=== PATIENT | male | born 1970 | race Caucasian/White ===

== ENCOUNTER 2017-09-17 03:53 | Inpatient (IN) | payer OTHER ==
[~2017-09-17] VITALS: Ht 180.3 cm; Wt 77.6 kg
[2017-09-17 04:00] VITALS: BP 145/95
--- NOTE | 2017-09-17 04:04 | NUR ---
PT AMBULATED TO BED 2
--- NOTE | 2017-09-17 04:05 | NUR ---
PATIENT PRESENTS TO ED WITH C/O AB PAIN +N/V/D X 1 WEEK; SKIN IS PINK/WARM/DRY; AAOX4 WITH EVEN AND STEADY GAIT; LUNGS CLEAR BL; HR EVEN AND REGULAR; PT DENIES CP, SOB, OR COUGH AT THIS TIME; PATIENT STATES PAIN OF 10/10 AT THIS TIME; VSS; PATIENT POSITIONED FOR COMFORT; HOB ELEVATED; BEDRAILS UP X2; BED DOWN. ER MD MADE AWARE OF PT STATUS.
[2017-09-17] MEDS ORDERED: NACL 0.9% 1,000 ML IV SCH ×2 (04:36→06:46)
[2017-09-17] MEDS ORDERED: KETOROLAC 30 MG/ML VIAL IVP ONE ×2 (04:40→09:45)
[2017-09-17 04:49] LABS: BILIRUBIN,URINE NEGATIVE (NEGATIVE); BLOOD, URINE 2+ (NEGATIVE); COLOR,URINE YELLOW (YELLOW); LEUKOCYTE ESTERASE ,URINE NEGATIVE (NEGATIVE); NITRITE, URINE NEGATIVE (NEGATIVE); PH,URINE 7.5 (5.0-9.0); UGLUCOSE NEGATIVE (NEGATIVE)
[2017-09-17 04:49] LABS: HEMATOCRIT 42.6 % (36-52); HEMOGLOBIN 14.9 g/dL (12.0-18.0); MEAN CORPUSCULAR HEMOGLOBIN 29 pg (27-31); MEAN CORPUSCULAR HGB CONC 35 g/dL (33-37); MEAN CORPUSCULAR VOLUME 81.6 fL (80-94); PLATELET COUNT (AUTO) 229 K/uL (140-450); RED BLOOD CELL COUNT(AUTO) 5.22 MIL/uL (4.20-6.10); RED CELL DISTRIBUTION WIDTH 13.3 % (11.6-13.7); WHITE BLOOD COUNT (AUTO) 13.4 K/uL (4.8-10.8)
[2017-09-17 05:06] LABS: CARBON DIOXIDE 25.6 mmol/L (21-32); CREATININE 1.2 mg/dL (0.7-1.3); POTASSIUM 3.6 mmol/L (3.5-5.1)
[2017-09-17 05:12] LABS: ALBUMIN 3.4 g/dL (3.4-5.0); TOTAL BILIRUBIN 0.8 mg/dL (0.0-1.0)
[2017-09-17 05:20] LABS: LYMPHOCYTES % (MANUAL) 3 % (20-46); MONOCYTES % (MANUAL) 5 % (5-12)
[2017-09-17 05:27] LABS: APPEARANCE,URINE SLIGHTLY HAZY (CLEAR)
[2017-09-17 05:28] LABS: RBC,URINE 3-10 (FEW) /HPF (0-5); WBC,URINE 0-5 (RARE) /HPF (0-5)
[2017-09-17] MEDS ORDERED: MORPHINE SULFATE 4 MG/ML SYR IVP ONE (05:30)
[2017-09-17] MEDS ORDERED: PIPERACILLIN/TAZOBACTAM 3.375 GM in DEXTROSE 5% 50 ML IV ONE (05:35)
[2017-09-17] MEDS ORDERED: PIPERACILLIN/TAZOBACTAM 3.375 GM VIAL IV ONE (05:44)
[2017-09-17] MEDS ORDERED: ONDANSETRON 4 MG/2 ML VIAL IM/IVP PRN (06:50)
--- NOTE | 2017-09-17 07:10 | NUR ---
ER NURSES BROUGHT PT ON A WHEELCHAIR. PT IS AWAKE AND ORIENTED. INTRODUCED MYSELF AND UPDATED THE BOARD. PT IS ACCOMPANIED BY SPOUSE. AMBULATED FROM WHEELCHAIR TO BED. STEADY GAIT. PT V/S WITHIN NORMAL LIMITS. DENIES PAIN, JUST DISCOMFORT. PT HAS NO OTHER MEDICAL HX, SKIN IS INTACT. IV ON L AC 20G SL. MRSA SCREENING DONE. WILL CONTINUE TO MONITOR PT.
[2017-09-17 07:53] LABS: CHOL/HDL RATIO 3.2 (1-4.5); MAGNESIUM 1.8 mg/dL (1.8-2.4); PHOSPHORUS 2.5 mg/dL (2.5-4.9)
--- NOTE | 2017-09-17 07:55 | NUR ---
ADMINISTERED FLUIDS ORDERED. PT IS RESTING COMFORTABLY. NO SIGNS OF DISTRESS. WILL CONTINUE TO MONITOR PT.
[2017-09-17 08:00] LABS: BARBITURATE, URINE NEG. ng/ml (NEG <=200); BENZODIAZEPINE, URINE NEG. ng/mL (NEG <=200); CANNABINOID, URINE POS. ng/mL (NEG <=50); COCAINE, URINE NEG. ng/mL (NEG <=300); OPIATE, URINE NEG. ng/mL (NEG <=2000); PHENCYCLIDINE SCREEN,URINE NEG. ng/mL (NEG <=25)
--- NOTE | 2017-09-17 08:42 | NUR ---
ADMINISTERED MORNING MED AND ADJUSTED FLUIDS PER MD ORDER. SURGERY CALLED AND WILL BE PICKING UP THE PT AROUND 0930. PT RESTING COMFORTABLE IN BED WAITING. NO SIGNS OF DISTRESS. WILL CONTINUE TO MONITOR.
[2017-09-17] MEDS: LACTOBACILLUS RHAMNOSUS GG 1 EACH CAP PO SCH (08:50)
--- NOTE | 2017-09-17 08:51 | NUR ---
PATIENT HAS BEEN SCREENED AND CATEGORIZED MODERATE NUTRITION RISK. PATIENT WILL BE SEEN WITHIN 3-5 DAYS OF ADMISSION. 09/19/17 09/21/[address] Addendum: 09/17/17 at [address] PATIENT HAS BEEN RE-SCREENED AND RE-CATEGORIZED HIGH NUTRITIONAL RISK DUE TO SEPSIS. PATIENT WILL BE SEEN 09/18/[address]
[2017-09-17] MEDS ORDERED: LACTOBACILLUS RHAMNOSUS GG 1 EACH CAP PO SCH (09:00)
--- NOTE | 2017-09-17 09:10 | NUR ---
TWO O/R NURSES HERE TO TAKE PT TO SURGERY.
[2017-09-17] MEDS ORDERED: BUPIVACAINE MPF 0.25% 10 ML VIAL INJ ONE (09:17)
[2017-09-17] MEDS ORDERED: MIDAZOLAM 2 MG/2 ML VIAL ONE (09:36)
[2017-09-17] MEDS ORDERED: fentaNYL 0.05 MG/ML VIAL ONE (09:36)
[2017-09-17] MEDS ORDERED: MEPERIDINE 50 MG/ML SYR ONE (09:36)
[2017-09-17] MEDS ORDERED: SUCCINYLCHOLINE CHLORIDE 200 MG/10 ML VIAL IV ONE (09:45)
[2017-09-17] MEDS ORDERED: ONDANSETRON 4 MG/2 ML VIAL IVP ONE (09:45)
[2017-09-17] MEDS ORDERED: DEXAMETHASONE 4 MG/ML VIAL IVP ONE (09:45)
[2017-09-17] MEDS ORDERED: SEVOFLURANE 250 ML BTL INH ONE (09:45)
[2017-09-17] MEDS ORDERED: PROPOFOL 200 MG/20 ML VIAL IV ONE (09:45)
[2017-09-17] MEDS ORDERED: ROCURONIUM 50 MG/5 ML VIAL IV ONE (09:45)
[2017-09-17 09:56] VITALS: BP 126/77
[2017-09-17] MEDS: DEXT 5% / NACL 0.45% 1,000 ML IV SCH ×2 (11:35→20:59)
[2017-09-17 12:25] VITALS: BP 139/80
--- NOTE | 2017-09-17 12:25 | NUR ---
PT IS BACK FROM SURGERY. VS WITHIN NORMAL LIMITS. IS AT BEDSIDE.
--- NOTE | 2017-09-17 12:49 | NUR ---
Clinical review faxed to [facility] at [phone]
[2017-09-17 12:50] VITALS: BP 141/87
[2017-09-17 12:57] LABS: BASOPHILS % (AUTO) 0.2 % (0.0-2.0); EOSINOPHILS % (AUTO) 0.1 % (0.0-4.0); HEMATOCRIT 39.3 % (36-52); HEMOGLOBIN 13.7 g/dL (12.0-18.0); LYMPHOCYTES # (AUTO) 0.3 K/uL (2.0-11.5); LYMPHOCYTES % (AUTO) 4.1 % (20.5-51.1); MEAN CORPUSCULAR HEMOGLOBIN 29 pg (27-31); MEAN CORPUSCULAR HGB CONC 35 g/dL (33-37); MEAN CORPUSCULAR VOLUME 82.5 fL (80-94); MONOCYTES # (AUTO) 0.4 K/uL (0.8-1.0); MONOCYTES % (AUTO) 5.2 % (1.7-9.3); NEUTROPHILS # (AUTO) 6.8 K/uL (1.8-7.7); NEUTROPHILS % (AUTO) 90.4 % (42.2-75.2); PLATELET COUNT (AUTO) 207 K/uL (140-450); RED BLOOD CELL COUNT(AUTO) 4.76 MIL/uL (4.20-6.10); RED CELL DISTRIBUTION WIDTH 13.1 % (11.6-13.7); WHITE BLOOD COUNT (AUTO) 7.5 K/uL (4.8-10.8)
[2017-09-17] MEDS: PIPER/TAZO 3.375GM/D5W PREMIX 50 ML IV SCH ×2 (13:18→20:54)
[2017-09-17 13:22] LABS: ANION GAP 12.5 (8-16); CARBON DIOXIDE 27.8 mmol/L (21-32); CREATININE 1.2 mg/dL (0.7-1.3); POTASSIUM 4.3 mmol/L (3.5-5.1)
--- NOTE | 2017-09-17 14:17 | NUR ---
PT AT BEDSIDE ASSISTING PT WITH I/S. PT REQUESTING PAIN MEDICINE D/T PAIN IN THE ABDOMEN. WILL ADMINISTER AND CONTINUE TO MONITOR.
[2017-09-17] MEDS: MORPHINE SULFATE 2 MG/ML SYR IVP PRN ×3 (14:18→20:48)
[2017-09-17 16:00] VITALS: BP_SYST 133; BP_SYST 141; BP_DIAS 87; BP_DIAS 89
--- NOTE | 2017-09-17 16:00 | NUR ---
PT VS STABLE. DRESSING ARE INTACT AND DRY. ASSISTED PT TP BATHROOM. EMPTIED DRAIN, 150ML OUT.
--- NOTE | 2017-09-17 18:00 | NUR ---
PT EATING DINER. IS AT BEDSIDE. EMPTIED DIEGO DRAIN, 55ML. NO S/SX OF DISTRESS. WILL CONTINUE TO MONITOR.
--- NOTE | 2017-09-17 19:25 | NUR ---
ENDORSED PT TO PHP LAMP DEVELOPER NURSE FOR CONTINUITY OF CARE. PT IN STABLE CONDITION.
--- NOTE | 2017-09-17 19:26 | NUR ---
RECEIVED PT AWAKE, COMPLAINING OF PAIN STATED SHORT RELIEF FROM MORPHINE IVP GIVEN EARLIER, WILL MEDICATE WITH NORCO, ABDOMINAL DRESSING DRY AND INTACT, DIEGO DRAIN TO BULB SUCTION DRAINING MODERATE SANGUINEOUS FLUID, TOLERATING DIET WELL, BURPING BUT NOT PASSING GAS YET, IVF INFUSING WELL, USING IS, PLAN OF CARE DISCUSS AND QUESTIONS ANSWERED, AT BEDSIDE, CALL LIGHT WITHIN REACH.
--- NOTE | 2017-09-17 19:40 | NUR ---
PT CHANGE HIS MIND, WILL WAIT FOR NEXT DUE MORPHINE IVP INSTEAD OF TAKING NORCO, ALL NEEDS ATTENDED.
--- NOTE | 2017-09-17 21:00 | NUR ---
PT AMBULATED TO BR AND VOIDED FREELY, ASSISTED BACK TO BED, MEDICATED PRN FOR PAIN WITH MORPHINE IVP, DUE IV ANTIBIOTIC ADMINISTERED, DIEGO WITH 50ML SANGUINEOUS DRAINAGE NOTED, CONTINUE ON BULB SUCTION, MONITORED CLOSELY.
[2017-09-17] MEDS: HYDROcodone/APAP 7.5/325 MG 1 TAB PO PRN (22:04)
--- NOTE | 2017-09-17 22:50 | NUR ---
DR BOWEN CALLED, UPDATED ON PT'S CONDITION, DIEGO DRAINAGE AND LAB RESULTS, NO NEW ORDERS AT THIS TIME.
[2017-09-18] VITALS: BP 136/86
--- NOTE | 2017-09-18 00:07 | NUR ---
PT SLEEPING, AROUSABLE TO NAME, DENIES ANY PAIN, IVF INFUSING WELL, CONTINUE TO MONITOR CLOSELY.
--- NOTE | 2017-09-18 02:10 | NUR ---
PT SLEEPING, EASILY AROUSABLE, DENIES PAIN, DIEGO DRAIN EMPTIED WITH 30ML SANGUINEOUS DRAINAGE, PT VOIDING FREELY USING URINAL, MONITORED CLOSELY.
[2017-09-18] MEDS: DEXT 5% / NACL 0.45% 1,000 ML IV SCH ×4 (03:35→19:35)
[2017-09-18] MEDS: PIPER/TAZO 3.375GM/D5W PREMIX 50 ML IV SCH ×3 (04:48→20:27)
--- NOTE | 2017-09-18 04:58 | NUR ---
PT AWAKE, DENIES PAIN AT THIS TIME, DUE IV ZOSYN ADMINISTERED, DIEGO WITH 20ML SANGUINOUS DRAINAGE, ABDOMINAL DRESSING WITH SEROSANGUINEOUS DRAINAGE NOTED, DRESSING REINFORCED WITH ABD PAD, PT IN NO DISTRESS, MONITORED CLOSELY.
[2017-09-18 06:11] LABS: BASOPHILS % (AUTO) 0.2 % (0.0-2.0); HEMATOCRIT 34.6 % (36-52); HEMOGLOBIN 12.3 g/dL (12.0-18.0); LYMPHOCYTES # (AUTO) 0.5 K/uL (2.0-11.5); LYMPHOCYTES % (AUTO) 5.5 % (20.5-51.1); MEAN CORPUSCULAR HEMOGLOBIN 29 pg (27-31); MEAN CORPUSCULAR HGB CONC 36 g/dL (33-37); MEAN CORPUSCULAR VOLUME 81.8 fL (80-94); MONOCYTES # (AUTO) 0.9 K/uL (0.8-1.0); NEUTROPHILS # (AUTO) 8.4 K/uL (1.8-7.7); NEUTROPHILS % (AUTO) 85.3 % (42.2-75.2); PLATELET COUNT (AUTO) 217 K/uL (140-450); RED BLOOD CELL COUNT(AUTO) 4.23 MIL/uL (4.20-6.10); RED CELL DISTRIBUTION WIDTH 13.1 % (11.6-13.7); WHITE BLOOD COUNT (AUTO) 9.8 K/uL (4.8-10.8)
--- NOTE | 2017-09-18 06:22 | NUR ---
PT SEEN AMBULATING AROUND THE ROOM, TOLERATING WELL, TOLERABLE PAIN AT THIS TIME, IVF INFUSING WELL, MONITORED CLOSELY.
[2017-09-18 06:34] LABS: ANION GAP 16.5 (8-16); CARBON DIOXIDE 26.6 mmol/L (21-32); POTASSIUM 4.1 mmol/L (3.5-5.1)
--- NOTE | 2017-09-18 07:20 | NUR ---
PT AWAKE SITTING ON THE CHAIR, NO DISTRESS NOTED, REPORT GIVEN TO JUAN FARLEY FOR CONTINUITY OF CARE.
--- NOTE | 2017-09-18 07:22 | NUR ---
RECEIVED REPORT FROM SOCIAL WORK ADMINISTRATOR NURSE, PT IS SITTING ON CHAIR AT BEDSIDE, WATCHING TV, PT IS AAOX4, AMBULATORY, PT HAS IV ON HIS LEFT AC, PATENT, INTACT, FLUSHING WELL, PT HAS ABDOMINAL DRESSING, PER SOCIAL WORK ADMINISTRATOR HE DID RE ENFORCE DRESSING ONE TIME DURING HIS SHIFT FOR MINIMAL SEROSANGUINEOUS STAIN, DRESSING IS DRY AND INTACT AT THIS TIME. PT HAS DIEGO DRAIN IN PLACE, 50ML OF SANGUINEOUS OUTPUT, NO S/S OF RESPIRATORY DISTRESS OR DISCOMFORT NOTED, DISCUSSED PLAN OF CARE WITH PT, PT VERBALIZED UNDERSTANDING, CALL LIGHT IS WITHIN REACH, WILL CONTINUE TO MONITOR.
[2017-09-18] MEDS: MORPHINE SULFATE 2 MG/ML SYR IVP PRN (07:46)
[2017-09-18 08:00] VITALS: BP 138/86
[2017-09-18 08:24] LABS: T4 (THYROXINE) 10.8 ug/dL (4.5-12.0)
--- NOTE | 2017-09-18 09:45 | NUR ---
PATIENT SITTING ON CHAIR AT BEDSIDE, WATCHING TV, CALL LIGHT IS WITHIN REACH.
[2017-09-18] MEDS: HYDROcodone/APAP 7.5/325 MG 1 TAB PO PRN ×3 (10:06→19:47)
[2017-09-18] MEDS: LACTOBACILLUS RHAMNOSUS GG 1 EACH CAP PO SCH (10:06)
--- NOTE | 2017-09-18 12:00 | NUR ---
PATIENT RESTING IN BED, NO S/S OF RESPIRATORY DISTRESS NOTED, CALL LIGHT IS WITHIN REACH.
--- NOTE | 2017-09-18 12:54 | NUR ---
FAXED CONCURRENT REVIEW TO [facility] [phone] PHONE [phone]
[2017-09-18 16:00] VITALS: BP 136/86
--- NOTE | 2017-09-18 16:43 | NUR ---
09/18/17 RD INITIAL ASSESSMENT COMPLETED PLEASE REFER TO NUTRITION ASSESSMENT UNDER CARE ACTIVITY FOR ESTIMATED NUTRITIONAL NEEDS. 1. CONTINUE CLEAR LIQUID DIET TOLERATED 2. RD TO FOLLOW-UP 3-5 DAYS, MODERATE RISK CHEPE BLAKELY RD
--- NOTE | 2017-09-18 16:45 | NUR ---
DR. BOWEN AT PATIENT BEDSIDE REMOVED DRESSING. PT TOLERATED WELL. PER DR. BOWEN REMOVE STITCHES FROM LEFT INCISION TOMORROW 09/19/17, BEFORE DISCHARGE.
--- NOTE | 2017-09-18 19:25 | NUR ---
ENDORSED PT TO [employer] FORMER ARBOR END NURSE FOR CONTINUITY OF CARE. PT STABLE AT THIS TIME.
--- NOTE | 2017-09-18 19:30 | NUR ---
RECEIVED PT SITTING ON SIDE OF BED, PER PT JUST FINISHED WALKING FROM THE BATHROOM, VOIDED FREELY, 6/10 PAIN LEVEL AT THIS TIME, WILL MEDICATE PRN, DIEGO DRESSING INTACT WITH LIGHT SEROSANGUINEOUS DRAINAGE, WILL CHANGE DRESSING PRN, DIEGO DRAIN ON BULB SUCTION AND EMPTIED 35 ML LIGHT PINKISH SEROSANGUINEOUS DRAINAGE, IVF INFUSING WELL, PER PT HE IS PASSING GAS, TOLERATING CLEAR LIQUID DIET, SAFETY MEASURES IN PLACE, AT BEDSIDE, CALL LIGHT WITHIN REACH.
--- NOTE | 2017-09-18 21:11 | NUR ---
DIEGO DRESSING WET WITH MODERATE YELLOW PINK SEROUS DRAINAGE NOTED, DRESSING CHANGE DONE, DIEGO DRAIN WITH 80ML LIGHT PINK SEROUS DRAINAGE NOTED, RESUME BULB SUCTION, NEW IV LINE STARTED ON LFT HAND, IV ANTIBIOTIC INFUSING WELL, ALL NEEDS ATTENDED.
[2017-09-19] VITALS: BP 126/79
--- NOTE | 2017-09-19 | NUR ---
PT SLEEPING, EASILY AROUSABLE, VITAL SIGNS STABLE, AFEBRILE, DENIES ANY PAIN, IVF INFUSING WELL, CONTINUE TO MONITOR CLOSELY.
[2017-09-19] MEDS: DEXT 5% / NACL 0.45% 1,000 ML IV SCH ×2 (01:40→11:35)
--- NOTE | 2017-09-19 01:40 | NUR ---
PT REQUESTING SCD TO BE OFF AT THIS TIME SO HE CAN SLEEP, DIEGO DRAIN EMPTIED WITH 30ML LIGHT YELLOW SEROUS DRAINAGE, DENIES ANY PAIN, NEW IV BAG STARTED, MONITORED CLOSELY.
[2017-09-19] MEDS: HYDROcodone/APAP 7.5/325 MG 1 TAB PO PRN ×4 (03:05→18:45)
--- NOTE | 2017-09-19 03:15 | NUR ---
DIEGO DRESSING SOAKED WITH LIGHT YELLOW SEROUS DRAINAGE, LIGHT YELLOWISH SEROUS DRAINAGE COMING OUT FROM DIEGO SITE INCISION, SUTURE STILL INTACT, DIEGO BULB SUCTION WITH LIGHT YELLOW SEROUS DRAINAGE NOTED, DRESSING CHANGE DONE, MEDICATED PRN FOR PAIN WITH NORCO PO, DR TRUJILLO MADE AWARE OF LEAKING ON THE DIEGO SITE, HE WILL CHECK THE PT, MONITORED CLOSELY.
[2017-09-19] MEDS: PIPER/TAZO 3.375GM/D5W PREMIX 50 ML IV SCH ×2 (04:33→13:07)
--- NOTE | 2017-09-19 06:24 | NUR ---
DIEGO DRESSING SOAKED WITH SEROUS DRAINAGE, DRESSING CHANGE DONE, EMPTIED DIEGO DRAIN WITH 20ML LIGHT YELLOW PINK SEROUS DRAINAGE, MILKED THE DIEGO TUBING TO REMOVE POSSIBLE OBSTRUCTION, WILL MONITOR DIEGO DRAINAGE AMOUNT, PT HAS TOLERABLE PAIN AT THIS TIME, DR ROSENBERG MADE AWARE OF DIEGO DRAIN SITE LEAKAGE, MONITORED CLOSELY.
--- NOTE | 2017-09-19 07:20 | NUR ---
PT AWAKE, NO SIGNS OF DISTRESS, REPORT GIVEN TO JUAN SPEARS FOR CONTINUITY OF CARE.
--- NOTE | 2017-09-19 07:22 | NUR ---
RECEIVED REPORT FROM QUANTITATIVE ANALYST RN. PATIENT IS AAO X4. STATES THAT PAIN IS TOLERABLE AT THIS TIME. LUNGS CTA IN ALL [place]. HEART RHYTHM REGULAR, S1 AND S2 NOTED. ABDOMINAL INCISIONS AND GLENN FROM LAP APPENDECTOMY ARE CLEAN, DRY, AND INTACT. DIEGO DRAIN IS SUTURED IN PLACE. SITE IS CLEAN, DRY, AND INTACT. PATIENT IS PASSING GAS. IV SITE IS PATENT AND ASYMPTOMATIC, RUNNING IVF PER MD ORDERS. DISCUSSED PLAN OF CARE WITH PATIENT, PATIENT VERBALIZED UNDERSTANDING. ALL SAFETY MEASURES ARE IN PLACE, CALL LIGHT IS WITHIN REACH. WILL CONTINUE TO MONITOR. Addendum: 09/19/17 at 1532 by Taylor Montanez Meng, RN SEROUS DRAINAGE NOTED AROUND DIEGO SITE. DOCTOR AWARE.
--- NOTE | 2017-09-19 07:31 | NUR ---
PAGED DR BOWEN TO REPORT LEAKAGE ON THE DIEGO SITE, AWAITING CALL BACK.
[2017-09-19 07:42] LABS: BASOPHILS # (AUTO) 0.1 K/uL (0.00-0.22); BASOPHILS % (AUTO) 0.5 % (0.0-2.0); EOSINOPHILS # (AUTO) 0.1 K/uL (0-0.4); EOSINOPHILS % (AUTO) 0.9 % (0.0-4.0); HEMATOCRIT 37.8 % (36-52); HEMOGLOBIN 13.2 g/dL (12.0-18.0); LYMPHOCYTES # (AUTO) 0.6 K/uL (2.0-11.5); MEAN CORPUSCULAR HEMOGLOBIN 29 pg (27-31); MEAN CORPUSCULAR HGB CONC 35 g/dL (33-37); MEAN CORPUSCULAR VOLUME 82.6 fL (80-94); MONOCYTES % (AUTO) 8.6 % (1.7-9.3); PLATELET COUNT (AUTO) 286 K/uL (140-450); RED BLOOD CELL COUNT(AUTO) 4.57 MIL/uL (4.20-6.10); RED CELL DISTRIBUTION WIDTH 13.4 % (11.6-13.7); WHITE BLOOD COUNT (AUTO) 11.8 K/uL (4.8-10.8)
[2017-09-19 07:56] LABS: CARBON DIOXIDE 26.4 mmol/L (21-32); CREATININE 1.1 mg/dL (0.7-1.3); POTASSIUM 3.4 mmol/L (3.5-5.1)
[2017-09-19 08:00] VITALS: BP 138/92
[2017-09-19 08:06] LABS: MAGNESIUM 1.8 mg/dL (1.8-2.4); PHOSPHORUS 3.4 mg/dL (2.5-4.9)
--- NOTE | 2017-09-19 08:30 | NUR ---
MADE DR BOWEN AWARE THAT PATIENT'S DIEGO DRAIN IS NOT DRAINING BUT THERE IS DRAINAGE NOTED AROUND THE DIEGO DRAIN INCISION. DRAINAGE IS CLEAR. NO S/S OF DISTRESS. NO NEW ORDERS
[2017-09-19] MEDS: LACTOBACILLUS RHAMNOSUS GG 1 EACH CAP PO SCH (09:32)
--- NOTE | 2017-09-19 09:33 | NUR ---
PATIENT IS COMPLAINING OF ABDOMINAL PAIN 5/10. WILL ADMINISTER NORCO PER MD ORDERS. WILL CONTINUE TO MONITOR.
--- NOTE | 2017-09-19 10:30 | NUR ---
SPOKE WITH ALEXIA FROM [facility]. PER ALEXIA, PATIENT NEEDS TO BE TRANSFERRED TO [facility] IF NOT DISCHARGED TODAY. MADE DR ALMEIDA AWARE
--- NOTE | 2017-09-19 11:35 | NUR ---
SCHEDULED IVF GIVEN PER MD ORDERS. PATIENT IS RESTING IN BED, WITH FAMILY MEMBER AT BEDSIDE. NO DISTRESS NOTED. WILL CONTINUE TO MONITOR.
--- NOTE | 2017-09-19 12:10 | NUR ---
PATIENT IS RESTING IN BED, AROUSABLE BY VOICE. STATES THAT PAIN IS TOLERABLE. WILL CONTINUE TO MONITOR.
--- NOTE | 2017-09-19 13:13 | NUR ---
FAXED CONCURRENT REVIEW AND ORDER TO TRANSFER TO [facility] TO [phone] PHONE [phone]. I CALLED SHAHEED HALE AT [facility] AND LEFT MESSAGE FOR HER TO CALL ME BACK.
--- NOTE | 2017-09-19 13:55 | NUR ---
PATIENT COMPLAINING OF ABDOMINAL PAIN 09/07. WILL ADMINISTER NORCO PER MD ORDERS.
[2017-09-19 16:00] VITALS: BP 133/86
--- NOTE | 2017-09-19 16:03 | NUR ---
SPOKE WITH CHRIS FROM [facility]. INFORMED HER THAT I FAXED THE ORDER FOR PATIENT TO GO [facility]. I GAVE HER THE PHONE NUMBER FOR DR. BOWEN. ALSO GAVE HER THE PHONE NUMBER TO THE FLOOR WHEN A BED BECOMES AVAILABLE.
--- NOTE | 2017-09-19 17:45 | NUR ---
PATIENT SEEN BY DR BOWEN
--- NOTE | 2017-09-19 18:50 | NUR ---
CALLED [facility] TO GIVE REPORT FOR PATIENT WHO IS READY FOR TRANSFER.
--- NOTE | 2017-09-19 19:30 | NUR ---
PATIENT PICKED BY [facility] TO BE TRANSFERRED TO [place]. DISCHARGE INSTRUCTIONS GIVEN. PATIENT VERBALIZED UNDERSTANDING. PATIENT LEFT WITH ALL HIS DISCHARGE PAPERS AND BELONGINGS. PATIENT LEFT IN STABLE CONDITION
== END 2017-09-19 19:30 | disposition short-term general hospital (02) | DRG 853 ==
LOC: MED 03:53 → MTU 06:51
PROVIDERS: ADMIT General Practice; ATTEND General Practice
PROC: 0W9H4ZZ Drainage of Retroperitoneum, Percutaneous Endoscopic Approach (ICD-10-PCS; 2017-09-17)
PROC: 0D9W40Z Drainage of Peritoneum with Drainage Device, Percutaneous Endoscopic Approach (ICD-10-PCS; 2017-09-17)
PROC: 0DTJ4ZZ Resection of Appendix, Percutaneous Endoscopic Approach (ICD-10-PCS; principal; 2017-09-17 09:30)
DX: A41.9 Sepsis, unspecified organism (principal); K35.2 Acute appendicitis with generalized peritonitis; N17.0 Acute kidney failure with tubular necrosis
CPT/HCPCS: 36415; 71045; 80048; 80053; 80305; 81001; 82140; 82150; 82374; 83036; 83605; 83690; 83735; 83880; 84100; 84436; 84443; 84479; 85025; 86886; 86900; 86901; 87040; 87070; 87075; 87081; 87086; 87205; 96361; 96365; 96375; 99285; J0330; J1100; J1885; J2175; J2250; J2270; J2405; J2543; J2704; J3010; J3490; J7030; Q0092